=== PATIENT | male | born 1940 | race Caucasian/White ===

== ENCOUNTER 2017-01-03 19:19 | Inpatient (IN) | payer MEDICARE, OTHER ==
[~2017-01-03] VITALS: Ht 193 cm; Wt 105.1 kg
[~2017-01-03 19:19] MED LIST: ACTALIN PO; ASCO100089 PO; ASPI325T32 PO; CARV3.122 PO; CEPH500C PO; CHOL10008 PO; CYAN500T53 PO; DONE10TA42 PO; LVCR25100 PO; MULT-1018 PO; OMEG500C3 PO; TELM40TA PO; UBID50CA29 PO; WALK1EAC55 MC; [UNRECOGNIZED DRUG - CODE] PO; [UNRECOGNIZED DRUG - OTHER] PO; [UNRECOGNIZED DRUG - OTHER] PO
--- NOTE | 2017-01-03 19:26 | ED.REPORT ---
HPI-General Illness Date of Service Jan 03, 2017 ED Provider: Steven Giordano MD Pt is a 76 y/o male w/ a hx of CAD, DM, HTN, Parkinson's disease, presenting to the ED via EMS due to syncopal episode with head injury that occurred earlier this morning. The pt states he was taking a shower and lost consciousness and hit his head. He does not know the duration of LOC or if he had any symptoms prior to the syncopal episode. Pt denies CP, SOB, abdominal pain, focal numbness or weakness. He lives with his family. After family arrives: Family reports he is more confused today and is normally independent but today has been profoundly generally weak today. They care for him multiple hours each day and state that he is significantly altered today. They deny any change in medication or possibility of OD. He did not eat today which is becoming more of a problem for him. Hx is limited secondary to mental status. Nursing Notes Stated Complaint: GLF,WEAKNESS Nursing Notes Reviewed: Yes Allergies: Coded Allergies: amoxicillin (Verified Allergy, Unknown, 01/03/17) cyclobenzaprine (Verified Allergy, Unknown, 01/03/17) ropinirole (Verified Allergy, Unknown, 01/03/17) verapamil (Verified Allergy, Unknown, 01/03/17) Scheduled ([Actalin]) 1 TAB PO HS ([Expel Laxative]) 1 TAB PO BID ([FIber blend]) 3-4 TAB PO BID 8am+8pm Ascorbic Acid (Vitamin C) 1,000 Mg Tab.chew 1 TAB PO BID Aspirin (Aspirin) 325 Mg Tablet 325 MG PO DAILY 5pm Carbidopa/Levodopa 25-100 mg (Sinemet 25-100 mg) 1 Each Tablet 1 TABLET PO BID BID 0600, 16:00 Carbidopa/Levodopa ER 50-200 mg (Sinemet CR 50-200 mg) 1 Each Tablet 1 TABLET PO TID TID 08:00, 14:00, 20:00 Carvedilol (Carvedilol) 3.125 Mg Tablet 3.125 MG PO BID Cephalexin (Cephalexin) 500 Mg Capsule 500 MG PO QID Cholecalciferol (Vitamin D3) (Vitamin D3) 1,000 Unit Tab.chew 2 TAB PO DAILY Cyanocobalamin (Vitamin B-12) (Vitamin B-12) 500 Mcg Tab.subl 500 MCG PO DAILY Donepezil (Donepezil) 10 Mg Tablet 10 MG PO HS Multivitamin (Multi Vitamin Daily) 1 Each Tablet 1 EACH PO DAILY [place]-3 Fatty Acids (Fish Oil) 500 Mg Capsule 2 CAPSULE PO DAILY Telmisartan (Micardis) 40 Mg Tablet 40 MG PO DAILY Ubidecarenone (Coenzyme Q-10) 50 Mg Capsule 50 MG PO DAILY General Time Seen by MD: 19:22 Chief Complaint Other (Syncope) Hx Obtained From: Patient, Other family..., EMS Arrived By: Ambulance Sudden in Onset?: Yes Onset Occurred: 5 - 8 hours ago Symptom Duration: Since onset Severity: Current: No pain currently Severity: Maximum: No pain Past Medical History Past Medical History Parkinson's Disease Hx melanoma Reports: Coronary artery disease, Diabetes mellitus, Hypertension Past Surgical History None reported Smoking History Former Smoker Social History Other Social History: Good social support, Ambulatory Status Cane Review of Systems Full Review of Systems Constitutional: Reports: Weakness - generalized, Denies: Chills, Fever Respiratory: Denies: Non-productive cough, Shortness of breath Cardiovascular: Denies: Chest pain, Dyspnea on exertion GI: Denies: Abdominal pain, Nausea, Vomiting Neurologic: Reports: Confusion, Syncope, Denies: Focal weakness, Headache, Numbness Psychiatric: Reports: Confusion Complete sys rev & neg: except as marked. Physical Exam Vital Signs Vital Signs Date Time Temp Pulse Resp B/P Pulse Ox O2 Delivery O2 Flow Rate FiO2 01/03/17 21:12 87 18 93/46 97 Room Air 01/03/17 20:33 67 22 103/40 98 Room Air 01/03/17 19:32 37.1 92 23 104/50 99 Room Air Initial VS: Reviewed Head / Eyes: Atraumatic, Normocephalic, PERRL Neck: Supple, Full range of motion Respiratory: Breath sounds normal, Clear to auscultation, No respiratory distress Cardiovascular: Regular rate & rhythm, Heart sounds normal, Intact distal pulses Extremities: Vascular intact, Neuro intact, No swelling, No tenderness Psychiatric: Mood/affect normal, Behavior normal General/Constitutional: Awake, No acute distress, Cooperative, Not toxic appearing Somnolent, confused, slow to answer questions, unable to provide complete history, dozing off and snoring during exam. ENT: Atraumatic, Airway patent Mouth: Positive: Mucous membranes dry Abdomen: Atraumatic, Soft, Non-tender, No guarding, No rebound Abdomen slightly distended Neurologic: Speech NL, No motor deficits Confused Slow to answer questions Unable to provide complete history Coarse resting tremor Interpretation & Diagnostics Lab Results Interpretation Result Diagram: 01/03/17 1950 01/03/17 1950 Test 01/03/17 19:50 01/03/17 20:24 White Blood Count 9.1th/mm3 (3.8-10.1) Red Blood Count 3.98mil/mm3 (4.40-5.80) Hemoglobin 12.6g/dL (13.8-17.2) Hematocrit 37.1% (41.0-50.0) Mean Corpuscular Volume 93.2fL (81-100) Mean Corpuscular Hemoglobin 31.7pg (27.0-35.0) Mean Corpuscular Hemoglobin Concent 34.0% (32.0-37.0) Red Cell Distribution Width 12.2% (12.3-15.4) Platelet Count 191bil/L (150-400) Neutrophils (%) (Auto) 88.8% (40-74) Lymphocytes (%) (Auto) 4.6% (14-46) Monocytes (%) (Auto) 6.4% (4-12) Eosinophils (%) (Auto) 0% (0-5) Basophils (%) (Auto) 0.1% (0-3) Sodium Level 136mEq/L (134-144) Potassium Level 3.9mEq/L (3.5-5.2) Chloride Level 101mEq/L (97-108) Carbon Dioxide Level 20mmol/L (18-29) Blood Urea Nitrogen 41mg/dL (8-27) Creatinine 1.48mg/dL (0.76-1.27) Estimat Glomerular Filtration Rate 49mL/min (>59) Glucose Level 145mg/dL (60-99) Lactic Acid Level 1.7mmol/L (0.4-2.0) Calcium Level 7.9mg/dL (8.5-10.1) Magnesium Level 2.0mg/dL (1.6-2.6) Total Bilirubin 0.8mg/dL (0.0-1.2) Aspartate Amino Transf (AST/SGOT) 22U/L (0-50) Alanine Aminotransferase (ALT/SGPT) 5U/L (0-44) Alkaline Phosphatase 65U/L (25-160) Total Protein 6.1g/dL (6.4-8.4) Albumin 3.7g/dL (3.4-5.0) Thyroid Stimulating Hormone (TSH) 0.451uIU/mL (0.450-4.500) Free Thyroxine 1.08ng/dL (0.82-1.77) Alcohol, Quantitative < 10mg/dL (0-10) Urine Color Yellow (YELLOW) Urine Appearance Hazy (CLEAR,HAZY) Urine pH 5.0 (5.0-8.0) Urine Specific [place] 1.030 (1.003-1.035) Urine Protein Tracemg/dL (NEG,TRACE) Urine Glucose (UA) Negativemg/dL (NEGATIVE) Urine Ketones Tracemg/dL (NEGATIVE) Urine Occult Blood Moderate (NEGATIVE) Urine Nitrite Negative (NEGATIVE) Urine Bilirubin Negative (NEGATIVE) Urine Urobilinogen Normalmg/dL (NORMAL) Urine Leukocyte Esterase Negative (NEGATIVE) Urine RBC >50/hpf (0-2) Urine WBC 0-5/hpf (0-5) Urine Epithelial Cells Few/hpf (NONE-MOD) Urine Crystals None seen (NONE SEEN) Urine Bacteria Few/hpf (NONE-FEW) Urine Hyaline Casts Rare/lpf (NONE) Urine Granular Casts None seen (NONE SEEN) Urine Waxy Casts None seen (NONE SEEN) Urine Red Blood Cell Casts None seen (NONE SEEN) Urine White Blood Cell Casts None seen (NONE SEEN) Urine Mucus Present (None Seen) Urine Trichomonas None seen (NONE SEEN) Urine Yeast None (NONE SEEN) Urinalysis Comment None Urine Culture Reflexed Not indicated ECG Interpretation ECG Interpretation: Sinus rhythm rate 90 RBBB LAFB LAD When compared to prior dated 04/06/16 there are no acute changes Time: 19:40 Interpreted by: ED physician Normal ECG Interpretation: No acute ischemic changes X-Ray Chest Interpretation Chest Xray Interpretation: IMPRESSION: No acute process. Dictated by: Ketty De La Rosa M.D. on 01/03/2017 at 20:04 Approved by: Ketty De La Rosa M.D. on 01/03/2017 at 20:04 View: Portable, 1 view Interpretation / Wet Read by: Interpret - Radiologist CT Head Interpretation IMPRESSION: No acute process. Dictated by: Ketty De La Rosa M.D. on 01/03/2017 at 20:51 Approved by: Ketty De La Rosa M.D. on 01/03/2017 at 20:51 Study: Head CT no contrast Interpretation / Wet Read by: Interpret - Radiologist Re-Eval/Medical Decision Med Decision/Clinical Course Pt is a 76 y/o male w/ a hx of CAD, DM, HTN, Parkinson's disease, presenting to the ED via EMS due to syncopal episode with head injury that occurred earlier this morning. The pt states he was taking a shower and lost consciousness and hit his head. He does not know the duration of LOC or if he had any symptoms prior to the syncopal episode. Pt denies CP, SOB, abdominal pain, focal numbness or weakness. He lives with his family. After family arrives: Family reports he is more confused today and is normally independent but today has been profoundly generally weak today. They care for him multiple hours each day and state that he is significantly altered today. They deny any change in medication or possibility of OD. He did not eat today which is becoming more of a problem for him. Hx is limited secondary to mental status. Upon arrival he is borderline hypotensive though otherwise afebrile and hemodynamically stable. Laboratory studies notable as below: Urine drug screen negative Cath UA: no signs of UTI, blood present CBC: No leukocytosis, stable HCT of 37.1 CMP: SYDNEY with a BUN of 41, Creatinine of 1.48, both acutely elevated from baseline, lactic acid of 1.7 UA: Unconvincing for UTI CXR: Obtained, reviewed and interpreted by myself shows no evidence of acute infiltrates, effusions or pneumothorax. Cardiac and mediastinal silhouette normal. No bony or soft tissue abnormalities. CT scan of the head demonstrates no acute intracranial process. Because of patient's altered mental status remains unclear at this time. Other than acute kidney injury C no evidence of significant electrolyte abnormality. Patient is without leukocytosis or fever and at this time there is no evidence of UTI or focal pneumonia. He is without meningismus or other findings convincing of meningitis or encephalitis. He has not started any new medications that would explain his acute alteration of mental status. Of note examination is suggestive of ascites though liver function testing is relatively unremarkable. Patient was discussed with admitting hospitalist team and they will proceed with further workup including CT scan of the abdomen and pelvis as well as consideration for diagnostic paracentesis. Patient was admitted in stable condition for further workup. Time of Eval: 20:58 Re-Evaluation/Progress Note: Pt rechecked. Patient sleeping comfortably. Family is now in room. They report he is usually very mobile and relatively independent. Pt informed of need for admission. Pt understands and agrees with plan for admission. All questions addressed. Consultation : Referral / Consult Name: Yves Ware MD Consulted With: Hospitalist Call Returned at: 21:30 Press And Blow Machine Tender: Will see patient, Agrees with eval, Agrees with plan, Accepts admit Counseled Regarding: Diagnosis, Lab results, Need for admission Discharge & Departure Primary Impression: Altered mental status Altered mental status type: unspecified Qualified Code: R41.82 - Altered mental status, unspecified Additional Impressions: Acute kidney injury Generalized weakness Ascites Disposition: ADMITTED TO HOSPITAL Discharge Condition All VS Reviewed: Yes Condition: Stable Referrals: Shai Morocho MD (PCP) Crit Care Except Billable Proc Time Spent: 105-134 minutes Services Performed: Patient management by me, Time spent at bedside, Reviewing test results, Reviewing imaging, Discussing patient care, Documentation in record, Time with fam/surrogate, Other Scribe Attestation Portions of this note were transcribed by Ritchie Clifton. I, Dr. Giordano personally performed the history, physical exam and medical decision-making; I reviewed and confirmed the accuracy of the information in the transcribed note. Signed by Gricel Olmedo, 01/03/17 - 1999 copies to: Shai Morocho MD, Beck O MD Jan 03, 2017 19:26 RITCHIE CLIFTON Jan 03, 2017 19:28
[2017-01-03 19:32] VITALS: BP 104/50; PULSE 92; RESP 23; O2SAT 99
[2017-01-03] MEDS ORDERED: 0.9% Sodium Chloride 1,000 ML IV ONE ×2 (19:45→21:10)
--- NOTE | 2017-01-03 20:05 | DRSVH ---
PROCEDURE: X-RAY CHEST ONE VIEW, PORTABLE ([id number]) INDICATIONS: sob TECHNIQUE: One view of the chest was acquired. COMPARISON: [facility], CR, XR CHEST 1VW (PORTABLE), 04/06/2016, 18:03[facility] ([facility]), 12/03/2011, 9:40. FINDINGS: Surgical changes and devices: None. Lungs and pleura: No pleural effusions or pneumothorax. Lungs are clear. Mediastinum: Mediastinal contours appear normal. Heart size is normal. Bones and chest wall: No suspicious bony lesions. Overlying soft tissues appear unremarkable. IMPRESSION: No acute process. Dictated by: Ketty De La Rosa M.D. on 01/03/2017 at 20:04 Approved by: Ketty De La Rosa M.D. on 01/03/2017 at 20:04
[2017-01-03 20:07] LABS: BASOPHILS % (AUTO) 0.1 % (0-3); EOSINOPHILS % (AUTO) 0 % (0-5); MONOCYTES % (AUTO) 6.4 % (4-12); Mean Corpuscular Hemoglobin 31.7 pg (27.0-35.0); Mean Corpuscular Volume 93.2 fL (81-100); NEUTROPHILS % (AUTO) 88.8 % (40-74); Platelet Count 191 bil/L (150-400)
[2017-01-03 20:33] VITALS: BP 103/40; PULSE 67; RESP 22; O2SAT 98
[2017-01-03 20:44] LABS: APPEARANCE,URINE HAZY (CLEAR,HAZY); COLOR,URINE YELLOW (YELLOW); OCCULT BLOOD,URINE MODERATE (NEGATIVE); UROBILINOGEN,URINE NORMAL (NORMAL)
--- NOTE | 2017-01-03 20:53 | DRSVH ---
PROCEDURE: CT BRAIN WITHOUT CONTRAST ([id number]) INDICATIONS: trauma, ams TECHNIQUE: Noncontrast 4.5 mm thick angled axial sections acquired from the foramen magnum to the vertex, with c oronal reformats. COMPARISON: [facility], CT, CT BRAIN WO CON, 04/06/2016, 17:27. FINDINGS: Image quality: Excellent. CSF spaces: Basal cisterns are patent. No extra-axial fluid collections. The ventricles are symmet jennifer in size and shape. Brain: No intracranial bleeds or masses. There is cerebral volume loss for age, with resultant vent ricular and sulcal prominence. There are periventricular and deep white matter chronic small vessel ischemic changes. There is intracranial internal carotid artery atherosclerosis. Skull and face: Calvarium and visualized facial bones appear intact, without suspicious lesions. Sinuses: Visualized sinuses and mastoids are clear. IMPRESSION: No acute process. Dictated by: Ketty De La Rosa M.D. on 01/03/2017 at 20:51 Approved by: Ketty De La Rosa M.D. on 01/03/2017 at 20:51
[2017-01-03 21:12] VITALS: BP 93/46; PULSE 87; RESP 18; O2SAT 97
[2017-01-03] MEDS ORDERED: Polyethylene Glycol (PEG) 17 Gm Powder PO PRN (22:00)
[2017-01-03] MEDS ORDERED: Alum-Mag Hydrox-Simeth 30 mL Suspension PO PRN (22:00)
[2017-01-03] MEDS ORDERED: Ondansetron 2 mg/mL 2 mL Inj IVPUSH PRN (22:00)
[2017-01-03 22:14] VITALS: BP 106/48; PULSE 86; RESP 16; O2SAT 97
[2017-01-03 22:35] VITALS: BP 114/54; PULSE 88; RESP 22; O2SAT 96
--- NOTE | 2017-01-03 22:43 | PCM.HPMED ---
Subjective Date of Service Jan 03, 2017 Primary Provider: Admitting Physician: Yves Ware MD Primary Care Physician: Shai Morocho MD Attending Physician: Yves Ware MD Chief Complaint: Syncopal event with loss of consciousness, head trauma Altered mental status Weakness History of Present Illness: Patient is a 76-year-old gentleman with a history of coronary artery disease, hypertension, diabetes, Parkinson's, who presented to the emergency department via EMS after having a syncopal episode and subsequent head injury that occurred this morning. Patient says he was taking a shower when he lost consciousness and hit his head. He does not know the duration of his loss of consciousness, or if he had any symptoms prior to the syncopal episode. He denies any chest pain, shortness of breath, abdominal pain, focal numbness or weakness, any complaints of pain. He lives with his family. His family reported to the emergency physician that he has been more confused today and is normally independent but has been profoundly generally weak today. They deny any changes in his medication possibility of overdose. He has not eaten today which family conveys has been more and more of a problem for him. In the emergency department he was found to have normal white blood count, left shift at 88% neutrophils, hemoglobin 12.6, electrolytes were normal, BUN elevated at 41, creatinine elevated at 1.48,(previous value 1.10 04/07/16) blood glucose 145. Total protein 6.1, calcium 7.9, lactic acid 1.7. Urinalysis: PH 5 , hazy, specific gravity 1.03, Trace protein, moderate occult blood, nitrites negative, leukocyte esterase negative, urine RBC greater than 50, urine urine white blood cells 0-5, few epithelial cells, few urine bacteria. Portable chest x-ray in the ER showed no acute processes, and head CT was negative Review of Systems: Review of systems negative unless mentioned per history of present illness. Patient is altered, and only responds to about half of questions. Allergies Coded Allergies: amoxicillin (Verified Allergy, Unknown, 01/03/17) cyclobenzaprine (Verified Allergy, Unknown, 01/03/17) ropinirole (Verified Allergy, Unknown, 01/03/17) verapamil (Verified Allergy, Unknown, 01/03/17) Home Medications ([Actalin]) 1 TAB PO HS ([Expel Laxative]) 1 TAB PO BID ([FIber blend]) 3-4 TAB PO BID 8am+8pm Ascorbic Acid (Vitamin C) 1,000 Mg Tab.chew 1 TAB PO BID Aspirin (Aspirin) 325 Mg Tablet 325 MG PO DAILY 5pm Carbidopa/Levodopa 25-100 mg (Sinemet 25-100 mg) 1 Each Tablet 1 TABLET PO BID BID 0600, 16:00 Carbidopa/Levodopa ER 50-200 mg (Sinemet CR 50-200 mg) 1 Each Tablet 1 TABLET PO TID TID 08:00, 14:00, 20:00 Carvedilol (Carvedilol) 3.125 Mg Tablet 3.125 MG PO BID Cephalexin (Cephalexin) 500 Mg Capsule 500 MG PO QID Cholecalciferol (Vitamin D3) (Vitamin D3) 1,000 Unit Tab.chew 2 TAB PO DAILY Cyanocobalamin (Vitamin B-12) (Vitamin B-12) 500 Mcg Tab.subl 500 MCG PO DAILY Donepezil (Donepezil) 10 Mg Tablet 10 MG PO HS Multivitamin (Multi Vitamin Daily) 1 Each Tablet 1 EACH PO DAILY [place]-3 Fatty Acids (Fish Oil) 500 Mg Capsule 2 CAPSULE PO DAILY Telmisartan (Micardis) 40 Mg Tablet 40 MG PO DAILY Ubidecarenone (Coenzyme Q-10) 50 Mg Capsule 50 MG PO DAILY PMH Past medical history Hypertrophic obstructive cardiomyopathy Essential hypertension Diabetes type II Obesity "Prostate trouble" Hyperlipidemia Skin carcinoma Cataract bilateral Childhood illness of mumps, measles, and chickenpox. Surgical History Tonsil and adenoid removal Vasectomy Appendectomy Family History Per outpatient record Father at the age of 85 from myocardial infarction, had high blood pressure Mother secondary to infection, leg amputation, glaucoma. Social History Occupation: retired Hx Alcohol Use: No Hx Substance Use: No Hx Tobacco Use: No Smoking Status: Former Smoker (last smoked in 1980 per outpatient record) Living Arrangement: with Family Exam Vital Signs Vital Sign - Last Date Time Temp Pulse Resp B/P Pulse Ox O2 Delivery O2 Flow Rate FiO2 01/03/17 22:14 86 16 106/48 97 Room Air 01/03/17 19:32 37.1 Exam General: Laying in bed, no apparent distress. Asleep, mouth open, snoring loudly easily arousable verbally. HEENT: Normocephalic, atraumatic, unable to appreciate any abrasions. Oral mucosa dry Cardiovascular: Regular rate and rhythm, 4/6 systolic murmur present throughout the precordium, peripheral pulses 2/4 equal bilaterally Pulmonary: Clear to auscultation bilaterally, no W/R/R. Abdominal: Patient expresses discomfort with abdominal palpation, Mildly distended, fluid wave appreciated, dependent dullness to percussion, bowel sounds present 4,Negative rebound. Extremities: No edema appreciated. Patient is guarding his. Neuro: Neurologically grossly intact, strength is equal bilaterally upper and lower extremities. MSK: Passive range of motion exam of upper extremities reveals myoclonus, cogwheel rigidity. Psych: There is confusion, does not know where he is, or why. He is slow to answer questions, somnolent, falling asleep multiple times during encountered. Lab and Diagnostics Result Diagram: 01/03/17 1950 01/03/17 1950 X-Rays, CTs and MRIs Portable chest x-ray 01/03/2017 IMPRESSION: No acute process. Dictated by: Ketty De La Rosa M.D. on 01/03/2017 at 20:04 CT brain without contrast 01/03/2017 IMPRESSION: No acute process. Dictated by: Ketty De La Rosa M.D. on 01/03/2017 at 20:51 12-lead ECG Per ER physician documentation- Sinus rhythm rate 90 RBBB LAFB LAD When compared to prior dated 04/06/16 there are no acute changes Assessment & Plan 78-year-old gentleman status post syncopal event, loss of consciousness, head trauma presents to the emergency department via EMS for prolonged altered mental status including somnolence #1 Acutely Encephalopathy, present on admission, evaluation ongoing -Possible causes include infection (left shift 88.8% neutrophils, possible sources: GI tract, UTI), worsening dementia secondary to Parkinson's, dehydration as evidenced by SYDNEY and dry oral mucosa, decreased oral intake per family. -Head CT normal, EKG normal, chest x-ray normal, urine analysis not grossly positive for infection, however hematuria is present without casts. -Repeat urinalysis as hematuria may be result of in and out catheterization, other possibilities include malignancy which may also support altered mental status, and presence of ascites. -Abdominal pelvis CT without contrast -results pending -Liver enzymes normal, bilirubin normal, hepatic encephalopathy unlikely -IV fluids, normal saline 100 mL/m -Patient has baseline dementia, on donepezil at home, will continue. #2 Acute kidney injury, present on admission, evaluation and treatment ongoing -Serum creatinine 1.48, BUN 41, ratio greater than 20 suggests prerenal azotemia. Dehydration and suspected given dry mucous membranes, and report of decreased oral intake -IV fluids as above -Measure -Place Jolly catheter for accurate urine output, altered mental status. #3 Acute Syncopal event, status post fall head trauma, LOC. -Cause indeterminate, again decreased fluid status could have resulted in transient hypotension. Vasovagal, or slip and fall with retrograde memory loss are also possibilities -Workup as above -IV fluids as above -Avoid blood thinners due to fall risk. #4 Chronic Parkinson's disease, present on admission, treatment ongoing -Unable to thoroughly assess at this time given altered mental status. -Symptoms may be due to worsening Parkinson's condition, -Treatment as above, -continue home medications. -If symptoms do not improve with fluid repletion, and infection source is not identified, will have neurology consult. #5 Medication reconciliation needs to be performed Chronic stable -Hypertension on carvedilol and Micardis 40 mg we will continue Pain Evaluation: Adequate Pain Control GI Prophylaxis: Not indicated VTE Prophylaxis Indicated: Contraindicated (recent fall, current fall risk) VTE Prophylaxis: SCDs Resuscitation Status: DNR/DNI:Do Not Resuscitate/Intubate Attending Statement The patient was seen and examined together with Dr. Kay on 01/03 and I agree with the history, exam and plan as outlined in the note above. Semaj Stewart DO Jan 03, 2017 22:43 Yves Ware MD Jan 03, 2017 23:46
[2017-01-03 22:55] VITALS: BP 107/55; PULSE 85; RESP 20; O2SAT 97
[2017-01-03] MEDS: 0.9% Sodium Chloride 1,000 ML IV SCH (23:55)
[2017-01-04] MEDS ORDERED: PEG/Electrolytes 4,000 mL Solution PO ONE (00:15)
--- NOTE | 2017-01-04 00:15 | NUR ---
Admit Patient admitted to room 3019 at 2245 from ED, no family present. Patient seems to be alert and oriented, but falls asleep during conversation. MED LIST NOT VERIFIED, MD aware, and will pass on to day RN to try and obtain. Pressure ulcer protocol started for Cas score of 10. No current sores seen. Attempted to orient patient to room, call light, plan of care, but he is sleepy. IV fluids infusing, telemetry placed. Will insert a Jolly catheter per MD order. Bed alarm on, call light in patient's hand, yellow socks on.
--- NOTE | 2017-01-04 01:30 | NUR ---
Jolly catheter Placed Jolly catheter per MD order at 0125. Patient tolerated well. Immediate return of clear, dark yellow urine. Bladder scanned patient prior to insertion, 135ml. Will monitor output.
[2017-01-04 03:03] VITALS: PULSE 87
[2017-01-04 03:51] VITALS: BP 98/55; PULSE 87; RESP 18; O2SAT 94
[2017-01-04 06:54] VITALS: PULSE 87
[2017-01-04 07:06] LABS: BASOPHILS % (AUTO) 0.2 % (0-3); EOSINOPHILS % (AUTO) 0 % (0-5); MONOCYTES % (AUTO) 8.8 % (4-12); Mean Corpuscular Hemoglobin 31.7 pg (27.0-35.0); NEUTROPHILS % (AUTO) 77.8 % (40-74); Platelet Count 178 bil/L (150-400)
--- NOTE | 2017-01-04 08:46 | DRSVH ---
PROCEDURE: CT ABDOMEN AND PELVIS WITHOUT CONTRAST ([id number]) INDICATIONS: Ascities, AMS, Left shift, ABd tenderness. TECHNIQUE: Noncontrast 5 mm thick sections acquired from the diaphragms to the symphysis. 5 mm coronal and sagi ttal reformats were then performed. For radiation dose reduction, the following was used: automated exposure control, adjustment of mA and/or kV according to patient size. COMPARISON: None. FINDINGS: Image quality: Excellent. ABDOMEN: Lung bases: Lung bases are clear. Heart size is enlarged. Atherosclerotic ossifications noted in th e visualized coronary vasculature. Mitral anulus calcifications are noted opacifications noted. Solid organs: Liver and spleen are normal in size. Gallbladder is within normal limits.. Pancreas is normal in contours. No adrenal nodules. Multiple small calcifications noted adrenal glands bilate rally possibly related to prior hemorrhage or infection. Kidneys are normal in size, without hydrone phrosis or nephrolithiasis. Hypoattenuating lesion noted in the left kidney which may represent a luanne al cyst, however a lesion cannot be definitively characterized without the benefit of intravenous con trast. Peritoneum and bowel: Multiple mildly dilated loops of small bowel are noted. Loops of small bowel ar e dilated up to 3.6 cm in diameter. Multiple diverticuli noted in the colon without evidence of diver ticulitis. No free fluid or air. Nodes and vessels: No retroperitoneal or mesenteric adenopathy by size criteria. Aorta and inferior vena cava are normal in caliber. Scattered atherosclerotic calcific agent is noted in the abdominal pelvic vasculature. Miscellaneous: No ventral hernias. PELVIS: Genitourinary: Bladder wall thickness is normal. Miscellaneous: No adenopathy. Small fat containing bilateral inguinal hernias are noted. Bones: No suspicious bony lesions. No vertebral body compression fractures. Spine degenerative disc disease and facet arthropathy are noted. Postsurgical changes compatible with prior L5 laminectomy n oted. IMPRESSION: 1. Multiple mildly dilated, fluid-filled loops of small bowel which be related to a nonspecific enter itis versus early or partial small bowel obstruction. 2. Colonic diverticulosis without evidence of diverticulitis. 3. No free fluid or air. 4. Atherosclerosis including the visualized coronary vasculature. 5. Cardiomegaly. Dictated by: Olga Chandler MD, PhD on 01/04/2017 at 8:36 Approved by: Olga Chandler MD, PhD on 01/04/2017 at 8:45
--- NOTE | 2017-01-04 09:08 | DRSVH ---
PROCEDURE: X-RAY RIGHT ELBOW COMPLETE, MINIMUM THREE VIEWS ([id number]) INDICATIONS: trauma TECHNIQUE: 3 views of the elbow were acquired. COMPARISON: None. FINDINGS: Bones: No fractures or dislocations. No suspicious bony lesions. Soft tissues: No elbow joint effusion. No suspicious soft tissue calcifications. Posterior soft ti ssue swelling. IMPRESSION: No displaced fracture seen. If there is continued pain, followup exam or additional adelia ging such as MRI or CT could be performed for further assessment. Dictated by: Chan Mark RRA Interpreted: Olga Chandler MD on 01/04/2017 at 9:07 Transcribed by: ARMAAN on 01/04/2017 at 9:07 Approved by: Olga Chandler MD, PhD on 01/04/2017 at 17:01
--- NOTE | 2017-01-04 09:18 | PCM.PNMED ---
Subjective Date of Service Jan 04, 2017 Subjective Mr Nation was more alert this morning and was cooperative and appropriate. He reports that he does not remember his LOC episode. He only remembers waking up in the bathtub. He does endorse some pain on his right temporal region from possibly hitting his head. Prior to the episode, he endorses URI symptoms and a nonproductive cough recently. Denies any fevers, diarrhea, or change in urinary sxs. He reports that he has chronic urinary freq after his prostate surgery. He did not notice any CP or SOB prior to last night. He does report feeling fatigued and lack of appetite, so he hasn't been eating much. He reports a moderate sized normal BM this morning. Exam Vital Signs Vital Sign - Last Date Time Temp Pulse Resp B/P Pulse Ox O2 Delivery O2 Flow Rate FiO2 01/04/17 06:54 87 01/04/17 03:51 37.3 18 98/55 94 Room Air Intake and Output 01/03/17 01/03/17 01/04/17 Cumulative From/Thru 15:00 23:00 07:00 01/03/17 19:32 - 01/04/17 06:55 Intake Total 1000 ml 0 ml 1000 ml Output Total 375 ml 375 ml Balance 1000 ml -375 ml 625 ml Intake Oral 0 ml 0 ml IV Total 1000 ml 1000 ml Output Urine Total 375 ml 375 ml # Voids 1 1 # Bowel Movements 1 1 Exam Gen: Obese male who appears mildly lethargic but otherwise in no acute distress HEENT: NC/AT, PERRLA, EOMI, oropharynx non-erythematous, mucosa pink Neck: Soft, midline CV: RRR with systolic murmur, peripheral pulses palpable and equal, no JVD noted Resp: Mild RLL rales, normal resp effort, no wheezing or rhonchi Abd: Mildly distended, TTP at lower quadrants, hyperactive BS, tympanic to percussion MSK: Decreased strength of BLE, Mild Cogwheel rigidity of both wrists, MS grossly intact and equal in BUE Neuro: CN2-12 intact, face symmetric, fluent although slow speech, sensation grossly intact Skin: warm, dry, intact, no rashes noted Psych: Slow, somewhat flat affect, but cooperative and appropriate IVs and Medications IV Fluids 100 mls/hr NS Medications Reviewed: Medications were reviewed in detail Lab and Diagnostics Result Diagram: 01/04/17 0645 01/04/1745 X-Rays, CTs and MRIs Portable chest x-ray 01/03/2017 IMPRESSION: No acute process. Dictated by: Ketty De La Rosa M.D. on 01/03/2017 at 20:04 CT brain without contrast 01/03/2017 IMPRESSION: No acute process. Dictated by: Ketty De La Rosa M.D. on 01/03/2017 at 20:51 CT abd/pelv IMPRESSION: 1. Multiple mildly dilated, fluid-filled loops of small bowel which be related to a nonspecific enteritis versus early or partial small bowel obstruction. 2. Colonic diverticulosis without evidence of diverticulitis. 3. No free fluid or air. 4. Atherosclerosis including the visualized coronary vasculature. 5. Cardiomegaly. 12-lead ECG Per ER physician documentation- Sinus rhythm rate 90 RBBB LAFB LAD When compared to prior dated 04/06/16 there are no acute changes Assessment & Plan 78-year-old gentleman w/ h/o Parkinson's Disease, HOCM, HTN, and DM2 who presented to ED by EMS for syncopal event, loss of consciousness, head trauma, and AMS. #1 Acutely Encephalopathy, present on admission, improving -Possible causes include infection (left shift 88.8% neutrophils, possible sources: GI tract, UTI), worsening dementia secondary to Parkinson's, dehydration as evidenced by SYDNEY and dry oral mucosa, decreased oral intake per family. -Head CT normal, EKG normal, chest x-ray normal, urine analysis not grossly positive for infection, however hematuria is present without casts. -Liver enzymes normal, bilirubin normal -IV fluids, normal saline 100 mL/m -Patient has baseline dementia, on donepezil at home, will continue. -CT abd/pelvis significant for possible enteritis vs partial SBO. With patient' s distended abdomen, hyperactive BS, Tenderness on palpation but normal BM, this could be a partial SBO. He is s/p appendectomy. -Physical Therapy noted Ataxia during examination. Will obtain MRI to r/o posterior stroke. #2 Acute kidney injury, present on admission, Resolved -Serum creatinine 1.48, BUN 41, ratio greater than 20 suggests prerenal azotemia. Dehydration and suspected given dry mucous membranes, and report of decreased oral intake -IV fluids administered on admission -Place Trejo catheter for accurate urine output while altered. -D/C trejo after PT eval today. #3 Acute Syncopal event, status post fall head trauma, LOC. -Cause indeterminate, again decreased fluid status could have resulted in transient hypotension. Vasovagal, or slip and fall with retrograde memory loss are also possibilities -Workup as above -IV fluids as above -Avoid blood thinners due to fall risk. -Patient does have a history of Hypertrophic CM, which can be a possible cause of this event, so an Echocardiogram will be ordered to assess for disease progression. #4 Parkinson's disease, present on admission, stable -Symptoms of decreasing appetite, lethargy, and increasing tremors may be due to worsening Parkinson's disease -continue home medications after Swallow Eval. -Swallow Eval pending. Medication reconciliation needs to be performed Chronic stable -Hypertension, POA Will continue carvedilol and Micardis 40 mg Pain Evaluation: Adequate Pain Control GI Prophylaxis: Not indicated VTE Prophylaxis: SCDs VTE Mechanical Devices: Intermittant Pneumatic CD Resuscitation Status: DNR/DNI:Do Not Resuscitate/Intubate Time spent 25 minutes Attending Statement I have seen and evaluated patient at bedside in addition to directly supervising care provided by resident physician. I agree with above documentation. Fabian Mulligan DO Jan 04, 2017 09:18 Jarrell Mohr DO Jan 05, 2017 07:46
[2017-01-04 09:34] VITALS: BP 104/52; PULSE 71; RESP 18; O2SAT 95
--- NOTE | 2017-01-04 10:23 | NUR ---
Evaluation completed. Please go to "Notes" then click on "Assessments and Notes" (bottom left corner of screen). Then select appropriate discipline tab on top of screen.
--- NOTE | 2017-01-04 10:42 | NUR ---
Social Work: Initial Assessment Data & Assessment: See Initial Assessment. EMR Reviewed. patient is a 76 year old male that admitted on 01/03/17 due to AMS and SYDNEY per H& P. Public Relations Manager met with patient at bedside to complete initial assessment, Social Work role explained and discharge planning discussed. Advanced directives were discussed and SW requested a copy of patient's DPOA. Patient's directives to physician are in patient's EMR. Patient confirmed that his PCP is Dr. Fer Morocho. Patient's insurance is Medicare and [employer] as secondary. Patient does not have any LTC or VA benefits. Patient reports that he is independent at baseline with no DME. Patient reports no SNF or HH history. Patient lives at home in a two story home with eight steps to enter and 10 steps on the inside. Patient has a PT eval. pending. SW will continue to follow. Plan: SW will continue to follow patient for discharge planning needs. PT evaluation pending for DC recommendations. Addendum: 01/04/17 at 1053 by LUZ JOY Amended: Links added.
[2017-01-04] MEDS ORDERED: TELM40TA4 PO (10:59)
[2017-01-04] MEDS ORDERED: DONE10TA42 PO (10:59)
[2017-01-04] MEDS ORDERED: CARB1CAP5 PO (10:59)
[2017-01-04] MEDS ORDERED: UBID1CAP3 PO (10:59)
[2017-01-04] MEDS ORDERED: OMEG500C PO (10:59)
[2017-01-04] MEDS ORDERED: CALC-714 PO (10:59)
[2017-01-04] MEDS: 0.9% Sodium Chloride 1,000 ML IV SCH (11:02)
[2017-01-04] MEDS ORDERED: [UNRECOGNIZED DRUG - OTHER] PO SCH (12:10)
[2017-01-04] MEDS ORDERED: MAGNESIUM CMB PO SCH (12:10)
[2017-01-04] MEDS ORDERED: CALCIUM CARB PO SCH (12:10)
[2017-01-04] MEDS ORDERED: Ascorbic Acid 500 mg Tablet PO SCH (12:10)
[2017-01-04] MEDS: Ascorbic Acid 500 mg Tablet PO SCH ×2 (13:19→20:13)
--- NOTE | 2017-01-04 15:23 | DRSVH ---
PROCEDURE: MRI STROKE PROTOCOL ([id number]) Pre- and post-contrast brain MRI, non-contrast brain MR angiogram, pre- and postcontrast neck MR sabina ogram INDICATIONS: Ataxia TECHNIQUE: Brain: Noncontrast axial T1 spin echo, axial T2 fast spin echo, sagittal and axial FLAIR, coronal T2 fast spin echo, axial gradient echo, axial diffusion and ADC through the brain. After the administr ation of contrast, axial 3D VIBE of the cranial vasculature and brain. Brain MRA: Non-contrast 3-D time of flight MR angiogram, with multiple pujkupr-ahkbgamix-kdnkzhueiq (MIP) reformats performed. Neck MRA: Axial and sagittal TruFISP through the neck. Coronal dynamic MR angiogram during administ ration of contrast in the arterial and venous phases, with 3-dimenstional grkhiff-tvzjgpcsp-vtyvbjcgu n (MIP) reformats constructed from subtraction images. COMPARISON: [facility], CT, CT BRAIN WO CON, 04/06/2016, 17:27. FINDINGS: Image quality: Partially degraded by motion artifact. BRAIN: CSF spaces: Ventricles are normal in size and shape. Basal cisterns are patent. No extra-axial flu id collections. Brain: No intracranial bleeds or mass effects. Moderate diffuse cerebral volume loss is present. Th ere is a mild degree of patchy high FLAIR signal within the periventricular and subcortical white mat ter. Woody-white matter interface is normal. Diffusion weighted images show no acute ischemic insults . Brainstem appears normal. Normal intravascular flow voids are present. No abnormal intracranial enhancement. Skull and face: Calvarial marrow signal is normal. Orbits appear normal. Sinuses: Sinuses and mastoids are clear. BRAIN MR ANGIOGRAM: Anterior circulation: Intracranial internal carotid arteries are normal in size and enhancement. Th e flow within the paired anterior cerebral arteries is normal and symmetric. The flow within the mid dle cerebral arteries is normal and symmetric. The anterior communicating artery is seen. No stenos es, occlusions, or aneurysms. Posterior circulation: The visualized portions of the vertebral arteries demonstrate normal caliber, and join to form a normal appearing basilar artery. There is a high-grade focal stenosis within the P2 segment of the right posterior cerebral artery. The flow within the posterior cerebral arteries i s otherwise normal and symmetric. No stenoses, occlusions, or aneurysms. NECK MR ANGIOGRAM: Acid Crane Operator T2 imaging through the neck is grossly unremarkable. The thoracic aortic arch is widely patent. There is a common origin of the innominate and left common carotid arteries, which is patent. The innominate and right subclavian arteries are patent. The righ t vertebral artery is patent she rated the right common carotid artery is patent. The right external and internal carotid arteries are patent. The last common carotid artery is not well seen proximally, but is patent as visualized. The left internal and external carotid arteries are patent. Left subcla vian artery is not well seen proximally, but is grossly patent as visualized. Left vertebral artery i s not well seen and is worse in, but is otherwise patent. IMPRESSION: BRAIN MRI: 1. No acute intracranial abnormality. No recent infarct. 2. Volume loss and small vessel ischemic disease. BRAIN MR ANGIOGRAM: 1. High-grade stenosis within the right posterior cerebral artery. 2. Otherwise negative cerebral MR angiography. NECK MR ANGIOGRAM: 1. No internal carotid artery stenosis bilaterally. 2. Patent right vertebral artery. Suboptimally visualized left proximal vertebral artery, which is ot herwise patent. 3. Suboptimally visualized great vessel origins. The estimate of stenosis included in the report of the imaging study was calculated using the NASCET method Dictated by: Ketty eD La Rosa M.D. on 01/04/2017 at 15:15 Approved by: Ketty De La Rosa M.D. on 01/04/2017 at 15:22
[2017-01-04 16:45] VITALS: BP 117/59; PULSE 73; RESP 20; O2SAT 93
--- NOTE | 2017-01-04 17:27 | NUR ---
Wound Care Pressure ulcer protocol received, pt seen at bedside. 76 yo male fell at home, unable to get up so required a 911 call and then presented by EMS to ED for evaluation. Patient is on a low airloss bed, skin assessment reveals no pressure related skin issues at this time. No wound follow up needed.
--- NOTE | 2017-01-04 18:40 | NUR ---
Jolly discontinued Catheter discontinued per order.
[2017-01-04 20:12] VITALS: BP 132/68; PULSE 70; RESP 20; O2SAT 98
[2017-01-04] MEDS: CARBIDOPA PO SCH (20:14)
[2017-01-04] MEDS: LEVODOPA PO SCH (20:14)
--- NOTE | 2017-01-05 05:18 | NUR ---
NOC shift note Patient slept through the night, denied pain when asked. Jolly removed prior to shift, patient is incontinent of urine. Repositioned multiple times. Intentional rounding in place, call light within reach. Patient has been pleasant and cooperative with care.
[2017-01-05 05:46] LABS: BASOPHILS % (AUTO) 0.1 % (0-3); EOSINOPHILS % (AUTO) 1.5 % (0-5); MONOCYTES % (AUTO) 13.5 % (4-12); Mean Corpuscular Hemoglobin 31.5 pg (27.0-35.0); Mean Corpuscular Volume 96.6 fL (81-100); NEUTROPHILS % (AUTO) 64.3 % (40-74); Platelet Count 160 bil/L (150-400)
[2017-01-05] MEDS: LEVODOPA PO SCH ×3 (06:19→17:12)
[2017-01-05] MEDS: CARBIDOPA PO SCH ×3 (06:19→17:12)
[2017-01-05 06:20] VITALS: BP 127/71; PULSE 69; RESP 18; O2SAT 97
[2017-01-05] MEDS: Omega-3 Fatty Acids 1,000 mg Capsule PO SCH (08:30)
[2017-01-05] MEDS: TELMISARTAN PO SCH (08:30)
[2017-01-05] MEDS: Ascorbic Acid 500 mg Tablet PO SCH ×2 (09:29→20:11)
--- NOTE | 2017-01-05 11:36 | DRSVH ---
[facility] [address] [place] [address] Echocardiogram Report Name: HALI WILSONudy Date: 01/05/2017 Height: 76 in Hospital Exam Location: [facility] Weight: 232 lb Gender: Male BSA: 2.4 m2 : 1940 Age: 76 yrs BP: 127/ 71 mmHg Reason For Study: Syncope Ordering Physician: [facility] Performed By: Lisa Lopez Referring Physician: Dr. Shai Morocho Interpretation Summary 1) Left ventricular hypertrophy, moderate at the basal to mid LV and severe at the apex, is present. 2) Normal left ventricular size and systolic function (EF 55-60%). 3) Mild to moderate LVOT gradient is present. Peak LVOT gradient is 38mmHg. 4) Mild systolic anterior motion of the mitral valve is present. 5) Mild age related calcification of the aortic valve is present. The transaortic gradient doppler profile suggests the gradient is more from the left ventricular hypertrophy than true aortic stenosis. No aortic stenosis is present. 6) Grade 2 diastolic dysfunction (pseudonormalization) pattern, consistent with elevated filling pressures. 7) Pulmonary hypertension present, estimated systolic pulmonary artery pressure of 66mmHg. Systolic PA pressure on the previous echo was 25mmHg. 8) Elevated right sided filling pressures. 9) Compared to the Echo done 10/28/2015, right sided filling pressures and pulmonary artery pressures are higher on today's study. Procedure: A two-dimensional transthoracic echocardiogram with color flow and Doppler was performed. The study quality was technically adequate. Comparison is made with the echocardiogram of 10/28/2015. The patient was in normal sinus rhythm during the exam. The patient had frequent PVCs during the exam. Left Ventricle: LVOT peak gradient of 38mmHg. The LVOT velocity is 2.0 m/s. The left ventricular outflow velocity with valsalva is 1.7 m/s. There is moderate-severe concentric left ventricular hypertrophy. The left ventricular cavity is small. The ejection fraction is estimated to be 65-70%. Left ventricular systolic function is normal without focal wall motion abnormalities. Assessment of diastolic parameters suggests a pseudonormalization pattern, consistent with elevated filling pressures. Right Ventricle: The right ventricle grossly appears normal in size with probable normal systolic function. Atria: Both atria are normal in size. The interatrial septum is intact with no evidence for an atrial septal defect. Mitral Valve: There is mild mitral annular calcification. The mitral valve leaflets appear mildly thickened, but open well. There is systolic anterior motion of the mitral valve. The mitral regurgitant jet is eccentrically directed. Aortic Valve: The aortic valve is trileaflet. There is discrete nodular thickening of the non- coronary cusp. There is no aortic valve stenosis. There is trace aortic regurgitation. Tricuspid Valve: The tricuspid valve leaflets are thin and pliable. There is mild tricuspid regurgitation. The right ventricular systolic pressure is estimated at 66 mmHg assuming a right atrial pressure of 15 mm Hg. Pulmonic Valve: The pulmonic valve is normal in structure and function. Great Vessels: The aortic root is normal size. The ascending aorta is normal in size. The aortic arch could not be visualized. The IVC is dilated (diameter is greater than 2.1 cm) and it collapses less than 50% with a sniff. This suggests a high right atrial pressure of 15 mm Hg. Pericardium/ Pleura There is no pericardial effusion. MMode/2D Measurements & Calculations LVIDd: 4.2 cm LA dimension: 4.3 cm RA long axis LVOT diam LVIDs: 3.0 cm FS: 27.2 % LA A2 area: 18.6 cm RA area Ao root diam EPSS: 0.43 cm LA A4 area: 23.4 cm IVSd: 2.1 cm LA length (vol): 6.3 cm : 15.6 cm Aortic Jxn LVPWd: 2.1 cm LA vol: 58.8 ml RA vol: 42.3 ml LA vol index RA asc Aorta : 17.9 mm2 Diam: 3.0 cm IVC diam: 2.3 cm LV del angel. diameter/BSA LV sys. diameter/BSA (cm/m^2): 1.8 (cm/m^2): 1.3 Doppler Measurements & Calculations Ao V2 max MV E max anthony MV E/A: 0.70 TR max anthony : 228.4 cm/sec : 100.6 cm/sec Med Peak E' Anthony : 355.7 cm/sec Ao max PG MV A max anthony TR max PG : 21.0 mmHg : 142.8 cm/sec E/E' med: 21.2 : 50.6 mmHg Ao mean PG MV P1/2t: 71.8 msec Lat Peak E' Anthony PA V2 max : 13.4 mmHg : 96.3 cm/sec LVOT Max Anthony E/E' lat: 14.3 PA mean PG : 204.1 cm/sec E/e' average: 17.8 Pulm A Revs Dur PA Accel Time CAROLYNN(I,D): 3.8 cm : 0.15 sec sev ratio MV A dur: 0.15 sec MV dec time MV P1/2t max anthony Ao V2 mean LV V1 max PG : 0.24 sec : 171.8 cm/sec MVA(P1/2t): 3.1 cm2 Ao V2 VTI: 54.1 cm LV V1 VTI CAROLYNN(V,D): 3.6 cm2 : 51.5 cm PA V2 mean CAROLYNN indexed to BSA Pulm A Revs Dur - MV A : 65.0 cm/sec (cm^2/m^2): 1.6 Dur: -0.05 msec Reading Physician:11:35 AM
[2017-01-05 13:21] VITALS: BP 134/74; PULSE 67; RESP 18; O2SAT 99
--- NOTE | 2017-01-05 13:24 | NUR ---
Activity Patient up in hallway with occupational therapy and physical therapy using a front wheeled walker. Patient up in chair for lunch and ambulated to bathroom with 1 person assist and front wheeled walker. Patient continues to be resistant to participate and requires encouragement to complete activities on his own, but is capable of doing so.
--- NOTE | 2017-01-05 19:16 | PCM.PNMED ---
Subjective Date of Service Jan 05, 2017 Subjective Still having some weakness this morning. Continues to be incontinent of bowels and urine. Otherwise no complaint other than lethargy and weakness. Exam Vital Signs Vital Sign - Last Date Time Temp Pulse Resp B/P Pulse Ox O2 Delivery O2 Flow Rate FiO2 01/05/17 13:21 37.1 67 18 134/74 99 Room Air Intake and Output 01/04/17 01/04/17 01/05/17 Cumulative From/Thru 15:00 23:00 07:00 01/03/17 19:32 - 01/05/17 06:58 Intake Total 2067 ml 756 ml 3823 ml Output Total 600 ml 975 ml Balance 1467 ml 756 ml 2848 ml Intake Oral 518 ml 50 ml 568 ml IV Total 1549 ml 706 ml 3255 ml Output Urine Total 600 ml 975 ml # Voids 1 2 # Bowel Movements 0 1 Exam Gen: Obese male who appears mildly lethargic but otherwise in no acute distress HEENT: NC/AT, PERRLA, EOMI, oropharynx non-erythematous, mucosa pink Neck: Soft, midline CV: RRR with systolic murmur, peripheral pulses palpable and equal, no JVD noted Resp: CTAB, normal effort Abd: Soft, NT, ND, Normoactive BS MSK: Decreased strength of BLE, Mild Cogwheel rigidity of both wrists, MS grossly intact and equal in BUE Neuro: Grossly intact, no focal weakness, fluent although slow speech Skin: warm, dry, intact, no rashes noted Psych: Slow, somewhat flat affect, but cooperative and appropriate IVs and Medications Medications Reviewed: Medications were reviewed in detail Lab and Diagnostics Result Diagram: 01/05/17 0510 01/05/17 0510 X-Rays, CTs and MRIs Portable chest x-ray 01/03/2017 IMPRESSION: No acute process. Dictated by: Ketty De La Rosa M.D. on 01/03/2017 at 20:04 CT brain without contrast 01/03/2017 IMPRESSION: No acute process. Dictated by: Ketty De La Rosa M.D. on 01/03/2017 at 20:51 CT abd/pelv IMPRESSION: 1. Multiple mildly dilated, fluid-filled loops of small bowel which be related to a nonspecific enteritis versus early or partial small bowel obstruction. 2. Colonic diverticulosis without evidence of diverticulitis. 3. No free fluid or air. 4. Atherosclerosis including the visualized coronary vasculature. 5. Cardiomegaly. 12-lead ECG Per ER physician documentation- Sinus rhythm rate 90 RBBB LAFB LAD When compared to prior dated 04/06/16 there are no acute changes Cardiac Echo Impressions Interpretation Summary 1) Left ventricular hypertrophy, moderate at the basal to mid LV and severe at the apex, is present. 2) Normal left ventricular size and systolic function (EF 55-60%). 3) Mild to moderate LVOT gradient is present. Peak LVOT gradient is 38mmHg. 4) Mild systolic anterior motion of the mitral valve is present. 5) Mild age related calcification of the aortic valve is present. The transaortic gradient doppler profile suggests the gradient is more from the left ventricular hypertrophy than true aortic stenosis. No aortic stenosis is present. 6) Grade 2 diastolic dysfunction (pseudonormalization) pattern, consistent with elevated filling pressures. 7) Pulmonary hypertension present, estimated systolic pulmonary artery pressure of 66mmHg. Systolic PA pressure on the previous echo was 25mmHg. 8) Elevated right sided filling pressures. 9) Compared to the Echo done 10/28/2015, right sided filling pressures and pulmonary artery pressures are higher on today's study. Assessment & Plan 78-year-old gentleman w/ h/o Parkinson's Disease, HOCM, HTN, and DM2 who presented to ED by EMS for syncopal event, loss of consciousness, head trauma, and AMS. #1 Acutely Encephalopathy, present on admission, improving -Possible causes include infection (left shift 88.8% neutrophils, possible sources: GI tract, UTI), worsening dementia secondary to Parkinson's, dehydration as evidenced by SYDNEY and dry oral mucosa, decreased oral intake per family. -Head CT normal, EKG normal, chest x-ray normal, urine analysis not grossly positive for infection, however hematuria is present without casts. -Liver enzymes normal, bilirubin normal -IV fluids, normal saline 100 mL/m -Patient has baseline dementia, on donepezil at home, will continue. -CT abd/pelvis significant for possible enteritis vs partial SBO. With patient' s distended abdomen, hyperactive BS, Tenderness on palpation but normal BM, this could be a partial SBO. He is s/p appendectomy. -Physical Therapy noted Ataxia during examination. 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 -Patient continues to be weak with PT sessions - they recommend outpt PT on discharge. #2 Acute kidney injury, present on admission, Resolved -Serum creatinine 1.48, BUN 41, ratio greater than 20 suggests prerenal azotemia. Dehydration and suspected given dry mucous membranes, and report of decreased oral intake -IV fluids administered on admission -D/C maya #3 Acute Syncopal event, status post fall head trauma, LOC. -Cause indeterminate, again decreased fluid status could have resulted in transient hypotension. Vasovagal, or slip and fall with retrograde memory loss are also possibilities -Workup as above -IV fluids as above -Avoid blood thinners due to fall risk. -Patient does have a history of Hypertrophic CM, which can be a possible cause of this event, so an Echocardiogram will be ordered to assess for disease progression. -Echo results as above #4 Parkinson's disease, present on admission, stable -Symptoms of decreasing appetite, lethargy, and increasing tremors may be due to worsening Parkinson's disease -continue home medications after Swallow Eval. Chronic stable -Hypertension, POA Will continue carvedilol and Micardis 40 mg Likely discharge tomorrow after PT. Pain Evaluation: Adequate Pain Control GI Prophylaxis: Not indicated VTE Prophylaxis: SCDs VTE Mechanical Devices: Intermittant Pneumatic CD Resuscitation Status: DNR/DNI:Do Not Resuscitate/Intubate Time spent 25 minutes Attending Statement I have seen and evaluated patient at bedside in addition to directly supervising care provided by resident physician. I agree with above documentation. Fabian Mulligan DO Jan 05, 2017 19:16 Jarrell Mohr DO Jan 06, 2017 15:50
[2017-01-05 21:00] VITALS: BP 144/72; PULSE 71; RESP 18; O2SAT 99
--- NOTE | 2017-01-06 02:45 | NUR ---
Activity Pt. was up ambulating in hallway during shift with 1 person assist w/ FWW. Pt. tolerated well. Pt. has been awake most of the night. Pt. denies pain. Pt. has been turned throughout the night, as pt. is incontinent of urine at times. No BM during shift yet. Will continue to monitor.
[2017-01-06 05:58] VITALS: BP 174/81; PULSE 72; RESP 20; O2SAT 96
[2017-01-06] MEDS: CARBIDOPA PO SCH ×2 (06:10→11:16)
[2017-01-06] MEDS: LEVODOPA PO SCH ×2 (06:10→11:16)
[2017-01-06 06:23] LABS: BASOPHILS % (AUTO) 0.3 % (0-3); EOSINOPHILS % (AUTO) 2.6 % (0-5); MONOCYTES % (AUTO) 10.6 % (4-12); Mean Corpuscular Hemoglobin 31.5 pg (27.0-35.0); Mean Corpuscular Volume 94.4 fL (81-100); NEUTROPHILS % (AUTO) 65.3 % (40-74); Platelet Count 178 bil/L (150-400)
[2017-01-06] MEDS: TELMISARTAN PO SCH (08:30)
[2017-01-06] MEDS: Omega-3 Fatty Acids 1,000 mg Capsule PO SCH (08:45)
[2017-01-06] MEDS: Ascorbic Acid 500 mg Tablet PO SCH (08:46)
--- NOTE | 2017-01-06 11:55 | PCM.DIMED ---
Discharge Instructions Date of Service Jan 06, 2017 Dates of Hospitalization Jan 03, 2017 at 21:39 Discharge Diagnosis Discharge Diagnosis #1 Acutely Encephalopathy, present on admission, improving #2 Acute kidney injury, present on admission, Resolved #3 Acute Syncopal event, status post fall head trauma, LOC. #4 Parkinson's disease, present on admission, stable - Improving mentation. Remains weaker than previous baseline. Pursue out patient rehab for strengthening. Diet No restrictions Activity Limited until seen by PCP Patient Instructions Follow-up Provider: Shai Morocho MD Follow-up with PCP in: 1 week Jarrell Mohr DO Jan 06, 2017 11:55
--- NOTE | 2017-01-06 12:05 | PCM.DC.MED ---
Discharge Summary Date of Service Jan 06, 2017 Dates of Hospitalization Date of Hospital Admission Jan 03, 2017 at 21:39 Date of Discharge: Jan 06, 2017 Providers: Admitting Physician: Yves Ware MD Primary Care Physician: Shai Morocho MD Attending Physician: Yves Ware MD Diagnosis at Time of Discharge Diagnosis at Time of Discharge #1 Acutely Encephalopathy, present on admission, improving #2 Acute kidney injury, present on admission, Resolved #3 Acute Syncopal event, status post fall head trauma, LOC. #4 Parkinson's disease, present on admission, stable - Improving mentation. Remains weaker than previous baseline. Pursue out patient rehab for strengthening. Procedures XRay, CTs & MRIs Portable chest x-ray 01/03/2017 IMPRESSION: No acute process. Dictated by: Ketty De La Rosa M.D. on 01/03/2017 at 20:04 CT brain without contrast 01/03/2017 IMPRESSION: No acute process. Dictated by: Ketty De La Rosa M.D. on 01/03/2017 at 20:51 CT abd/pelv IMPRESSION: 1. Multiple mildly dilated, fluid-filled loops of small bowel which be related to a nonspecific enteritis versus early or partial small bowel obstruction. 2. Colonic diverticulosis without evidence of diverticulitis. 3. No free fluid or air. 4. Atherosclerosis including the visualized coronary vasculature. 5. Cardiomegaly. ECG 12 Lead Per ER physician documentation- Sinus rhythm rate 90 RBBB LAFB LAD When compared to prior dated 04/06/16 there are no acute changes Cardiac Echo Impression Interpretation Summary 1) Left ventricular hypertrophy, moderate at the basal to mid LV and severe at the apex, is present. 2) Normal left ventricular size and systolic function (EF 55-60%). 3) Mild to moderate LVOT gradient is present. Peak LVOT gradient is 38mmHg. 4) Mild systolic anterior motion of the mitral valve is present. 5) Mild age related calcification of the aortic valve is present. The transaortic gradient doppler profile suggests the gradient is more from the left ventricular hypertrophy than true aortic stenosis. No aortic stenosis is present. 6) Grade 2 diastolic dysfunction (pseudonormalization) pattern, consistent with elevated filling pressures. 7) Pulmonary hypertension present, estimated systolic pulmonary artery pressure of 66mmHg. Systolic PA pressure on the previous echo was 25mmHg. 8) Elevated right sided filling pressures. 9) Compared to the Echo done 10/28/2015, right sided filling pressures and pulmonary artery pressures are higher on today's study. Brief History As per admission H&P by Dr. Bob, "Patient is a 76-year-old gentleman with a history of coronary artery disease, hypertension, diabetes, Parkinson's, who presented to the emergency department via EMS after having a syncopal episode and subsequent head injury that occurred this morning. Patient says he was taking a shower when he lost consciousness and hit his head. He does not know the duration of his loss of consciousness, or if he had any symptoms prior to the syncopal episode. He denies any chest pain, shortness of breath, abdominal pain, focal numbness or weakness, any complaints of pain. He lives with his family. His family reported to the emergency physician that he has been more confused today and is normally independent but has been profoundly generally weak today. They deny any changes in his medication possibility of overdose. He has not eaten today which family conveys has been more and more of a problem for him. In the emergency department he was found to have normal white blood count, left shift at 88% neutrophils, hemoglobin 12.6, electrolytes were normal, BUN elevated at 41, creatinine elevated at 1.48,(previous value 1.10 04/07/16) blood glucose 145. Total protein 6.1, calcium 7.9, lactic acid 1.7. Urinalysis: PH 5 , hazy, specific gravity 1.03, Trace protein, moderate occult blood, nitrites negative, leukocyte esterase negative, urine RBC greater than 50, urine urine white blood cells 0-5, few epithelial cells, few urine bacteria. Portable chest x-ray in the ER showed no acute processes, and head CT was negative" Hospital Course #1 Acutely Encephalopathy, present on admission, improving -Possible causes include infection (left shift 88.8% neutrophils, possible sources: GI tract, UTI), worsening dementia secondary to Parkinson's, dehydration as evidenced by SYDNEY and dry oral mucosa, decreased oral intake per family. -Head CT normal, EKG normal, chest x-ray normal, urine analysis not grossly positive for infection, however hematuria is present without casts. -Liver enzymes normal, bilirubin normal -IV fluids, normal saline 100 mL/m started initially though pt stable on PO intake at time of DC -Patient has baseline dementia, on donepezil at home, was continued through stay and discharge . -CT abd/pelvis significant for possible enteritis vs partial SBO. With patient' s distended abdomen, hyperactive BS, Tenderness on palpation but normal BM, this could be a partial SBO. He is s/p appendectomy. -Physical Therapy noted Ataxia during examination. 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 -Patient continues to be weak with PT sessions - they recommended outpt PT on discharge, which patient and family were in agreement with. Curbside consult with our neurologist Dr Kenny suggested no acute changes needed beyond rehab and recommended continued FU out patient with his primary neurologist. . #2 Acute kidney injury, present on admission, Resolved -Serum creatinine 1.48, BUN 41, ratio greater than 20 suggests prerenal azotemia. Dehydration and suspected given dry mucous membranes, and report of decreased oral intake IV fluids administered on admission, since discontinued with normalized renal function #3 Acute Syncopal event, status post fall head trauma, LOC. -Cause indeterminate, again decreased fluid status could have resulted in transient hypotension. Vasovagal, or slip and fall with retrograde memory loss are also possibilities -Workup as above -IV fluids as above -Plan : Avoid blood thinners due to fall risk. #4 Parkinson's disease, present on admission, stable -Symptoms of decreasing appetite, lethargy, and increasing tremors may be due to worsening Parkinson's disease -continue home medications, plan for continued FU out patient with neurologist. Exam Vital Signs (Last) Date Time Temp Pulse Resp B/P Pulse Ox O2 Delivery O2 Flow Rate FiO2 01/06/17 05:58 36.8 72 20 174/81 96 Room Air Exam Stable PE Vitals as noted by nursing. Pt lying in hospital bed (+)masked facies but states mood good, no complaints Neuro nonfocal with generalized weakness. Extremities well perfused. Test 01/03/17 19:50 01/03/17 20:24 01/04/17 06:45 01/05/17 05:10 Lactic Acid Level 1.7mmol/L (0.4-2.0) Magnesium Level 2.0mg/dL (1.6-2.6) Thyroid Stimulating Hormone (TSH) 0.451uIU/mL (0.450-4.500) Free Thyroxine 1.08ng/dL (0.82-1.77) Alcohol, Quantitative < 10mg/dL (0-10) Urine Color Yellow (YELLOW) Urine Appearance Hazy (CLEAR,HAZY) Urine pH 5.0 (5.0-8.0) Urine Specific [place] 1.030 (1.003-1.035) Urine Protein Tracemg/dL (NEG,TRACE) Urine Glucose (UA) Negativemg/dL (NEGATIVE) Urine Ketones Tracemg/dL (NEGATIVE) Urine Occult Blood Moderate (NEGATIVE) Urine Nitrite Negative (NEGATIVE) Urine Bilirubin Negative (NEGATIVE) Urine Urobilinogen Normalmg/dL (NORMAL) Urine Leukocyte Esterase Negative (NEGATIVE) Urine RBC >50/hpf (0-2) Urine WBC 0-5/hpf (0-5) Urine Epithelial Cells Few/hpf (NONE-MOD) Urine Crystals None seen (NONE SEEN) Urine Bacteria Few/hpf (NONE-FEW) Urine Hyaline Casts Rare/lpf (NONE) Urine Granular Casts None seen (NONE SEEN) Urine Waxy Casts None seen (NONE SEEN) Urine Red Blood Cell Casts None seen (NONE SEEN) Urine White Blood Cell Casts None seen (NONE SEEN) Urine Mucus Present (None Seen) Urine Trichomonas None seen (NONE SEEN) Urine Yeast None (NONE SEEN) Urinalysis Comment None Urine Culture Reflexed Not indicated Total Bilirubin 0.5mg/dL (0.0-1.2) Aspartate Amino Transf (AST/SGOT) 30U/L (0-50) Alanine Aminotransferase (ALT/SGPT) 5U/L (0-44) Alkaline Phosphatase 56U/L (25-160) Total Protein 5.2g/dL (6.4-8.4) Albumin 3.5g/dL (3.4-5.0) Procalcitonin 0.11ng/mL (0.00-0.08) Test 01/06/17 05:50 White Blood Count 7.4th/mm3 (3.8-10.1) Red Blood Count 3.55mil/mm3 (4.40-5.80) Hemoglobin 11.2g/dL (13.8-17.2) Hematocrit 33.5% (41.0-50.0) Mean Corpuscular Volume 94.4fL (81-100) Mean Corpuscular Hemoglobin 31.5pg (27.0-35.0) Mean Corpuscular Hemoglobin Concent 33.4% (32.0-37.0) Red Cell Distribution Width 12.4% (12.3-15.4) Platelet Count 178bil/L (150-400) Neutrophils (%) (Auto) 65.3% (40-74) Lymphocytes (%) (Auto) 21.1% (14-46) Monocytes (%) (Auto) 10.6% (4-12) Eosinophils (%) (Auto) 2.6% (0-5) Basophils (%) (Auto) 0.3% (0-3) Sodium Level 143mEq/L (134-144) Potassium Level 4.4mEq/L (3.5-5.2) Chloride Level 109mEq/L (97-108) Carbon Dioxide Level 22mmol/L (18-29) Blood Urea Nitrogen 22mg/dL (8-27) Creatinine 0.99mg/dL (0.76-1.27) Estimat Glomerular Filtration Rate 78mL/min (>59) Glucose Level 95mg/dL (60-99) Calcium Level 8.0mg/dL (8.5-10.1) Prealbumin 17mg/dL (20-40) Discharge Medications Discharge Medications ([Actalin]) 1 TAB PO HS (Reported) ([Expel Laxative]) 1 TAB PO BID (Reported) ([FIber blend]) 3-4 TAB PO BID (Reported) 8am+8pm Ascorbic Acid (Vitamin C) 1,000 Mg Tab.chew 1 TAB PO BID (Reported) Aspirin (Aspirin) 325 Mg Tablet 325 MG PO DAILY (Reported) 5pm Calcium Carb/Magnesium Cmb #10 (Dani-Mag Tablet Chewable) 1 Each Tab.chew 4 EACH PO BID (Reported) Carbidopa/Levodopa (Rytary ER 48.75 mg-195 mg Cap) 48.75 Mg-195 Mg Capsule.er 2 EACH PO TID 0700, 1100, 1700 (Reported) Carvedilol (Carvedilol) 3.125 Mg Tablet 3.125 MG PO BID (Reported) Donepezil (Donepezil) 10 Mg Tablet 10 MG PO BID (Reported) Multivitamin (Multi Vitamin Daily) 1 Each Tablet 1 EACH PO DAILY (Reported) [place]-3 Fatty Acids (Fish Oil) 500 Mg Capsule.dr 500 MG PO DAILY (Reported) Telmisartan (Telmisartan) 40 Mg Tablet 20 MG PO BID (Reported) Ubidecarenone/Vitamin E (Co Q-10 50 mg Softgel) 1 Each Capsule 1 EACH PO DAILY ( Reported) Followup Plan Disposition: Home with family Follow-up plan Out patient PT FU with PCP in 1 week Neurologist as previous scheduled Discharge Diet: No restrictions Discharge Activity: Limited until seen by PCP Follow-up Provider: Shai Morocho MD Follow-up with PCP in: 1 week Time spent 45 minutes copies to: Shai Morocho MD, Benjamin P DO Jan 06, 2017 12:05
--- NOTE | 2017-01-06 12:45 | NUR ---
CORDELL CORDELL signed
--- NOTE | 2017-01-06 12:46 | NUR ---
Social Work: Discharge Data & Assessment: Pulp Maker met with patient and patient at bedside to discuss discharge planning. Patient's states that she can not take care of the patient alone, but call a caregiver used previously and stated that she will have her to help in the home. Pulp Maker also provided patient and patient's with information for caregiver services. Patient will go to outpatient therapy at [facility]. Plan: Patient will discharge home via POV. Patient will go to [facility] for outpatient therapy. Abigail Anderson LMSW, ZACHERY
--- NOTE | 2017-01-06 16:20 | NUR ---
Discharge Patient departed unit via wheelchair accompanied by and staff. Patient alert and oriented at discharge. expressing concerns that patient continues to have difficulty transitioning from sit to stand and from lay to stand. transport company manager, physical therapy, nursing and hospitalist all met with patient and . Explanation given that due to the distance patient was able to ambulate with a front wheeled walker, that patient did not meet criteria for long-term facility. Physical therapy provided additional teaching to enhance patients ability to change positions without assistance. Patient able to successfully demonstrate his understanding and ability to repeat the movements. Discharge instructions/medications reviewed with patient and prior to discharge. All questions addressed. Patient belongings, discharge instructions and home medications in hand. Patient/ teaching on patient need to discontinue use of straws given.
== END 2017-01-06 16:00 | disposition home or self-care (01) | DRG 682 ==
LOC: SED 19:19 → MPC 21:39 → OBSVTOIN 21:39 → MPC 22:37
PROVIDERS: ADMIT Hospitalist; ATTEND Hospitalist
DX: N17.9 Acute kidney failure, unspecified (principal); G93.40 Encephalopathy, unspecified; K56.60 Unspecified intestinal obstruction; K52.9 Noninfective gastroenteritis and colitis, unspecified; I25.10 Atherosclerotic heart disease of native coronary artery without angina pectoris; E11.9 Type 2 diabetes mellitus without complications; I10 Essential (primary) hypertension; E78.5 Hyperlipidemia, unspecified; W18.2XXA Fall in (into) shower or empty bathtub, initial encounter; Y92.012 Bathroom of single-family (private) house as the place of occurrence of the external cause; R55 Syncope and collapse; G20 Parkinson's disease; F02.80 Dementia in other diseases classified elsewhere, unspecified severity, without behavioral disturbance, psychotic disturbance, mood disturbance, and anxiety